=== PATIENT | female | born 2000 | race Two or more races ===

== ENCOUNTER 2023-04-21 22:08 | Outpatient (CLI) | payer OTHER ==
[~2023-04-21] VITALS: Ht 154.9 cm; Wt 59.4 kg
[2023-04-21] MEDS ORDERED: PRENATAL TABLE1 EAC4 PO (22:26)
== END 2023-04-22 10:35 | disposition home or self-care (01) ==
LOC: OBS/DEL 22:08
PROVIDERS: ATTEND Obstetrics & Gynecology
DX: O26.892 Other specified pregnancy related conditions, second trimester (principal); R42 Dizziness and giddiness; Z3A.26 26 weeks gestation of pregnancy

== ENCOUNTER 2023-07-08 15:15 | Inpatient (IN) | payer OTHER ==
[~2023-07-08] VITALS: Ht 154.9 cm; Wt 66.7 kg
[~2023-07-08 15:15] MED LIST: PRENATAL TABLE1 EAC4 PO
[2023-07-12] MEDS ORDERED: IRON325 MG PO (22:19)
[2023-07-20] MEDS ORDERED: AMPICILLIN SODIUM 2,000 MG VIAL ONE (05:42)
[2023-07-20] MEDS ORDERED: OXYTOCIN 500 ML IV ONE (05:45)
[2023-07-20] MEDS ORDERED: RINGERS SOLUTION,LACTATED 1,000 ML IV SCH (07:00)
[2023-07-20] MEDS ORDERED: AMPICILLIN SODIUM 2,000 MG VIAL IV ONE (07:00)
[2023-07-20 07:26] LABS: HEMATOCRIT 30.6 % (36.0-45.00); HEMOGLOBIN 9.5 g/dL (12.0-15.00); MEAN CORPUSCULAR HEMOGLOBIN 20.8 pg (27.00-32.0); MEAN CORPUSCULAR HGB CONC 31.2 g/dl (32.0-36.0); RED BLOOD COUNT 4.59 M/uL (4.00-6.00); RED CELL DISTRIBUTION WIDTH 20.3 % (11.5-14.5)
[2023-07-20 07:42] LABS: ALBUMIN 2.8 gm/dL (3.4-5.0); BILIRUBIN TOTAL 0.45 mg/dL (0.3-1.2); CALCIUM 8.8 mg/dL (8.5-10.1); CREATININE SERUM 0.52 mg/dL (0.55-1.02); GFR 147.46; GLOBULINA 3.8 G/DL (2.4-3.5); POTASSIUM 3.91 mEq/L (3.5-5.1); TOTAL PROTEIN 6.6 gm/dL (6.4-8.2)
[2023-07-20 07:55] LABS: INR < 0.93; PROTHROMBIN TIME 9.8 SECONDS (9.0-11.5)
[2023-07-20 08:15] LABS: MEAN CELL VOLUME 66.6 fL (80.00-100.00); PLATELET COUNT 109 K/uL (150-450)
[2023-07-20] MEDS ORDERED: AMPICILLIN SODIUM 1,000 MG VIAL IV SCH (09:00)
[2023-07-20] MEDS ORDERED: MORPHINE SULFATE 4 MG/ML VIAL IV ONE (09:15)
[2023-07-20] MEDS ORDERED: CHLORHEXIDINE GLUCONATE 120 ML BOTTLE TOP ONE (14:21)
[2023-07-20] MEDS ORDERED: MORPHINE SULFATE 4 MG/ML CARTRIDGE IV STA (15:47)
[2023-07-20] MEDS ORDERED: ERYTHROMYCIN BASE 1 GM TUBE OP SCH (17:15)
[2023-07-20] MEDS ORDERED: CHLORHEXIDINE GLUCONATE 120 ML BOTTLE TOP SCH (17:15)
[2023-07-20] MEDS ORDERED: IBUprofen 400 MG TABLET PO PRN (17:15)
[2023-07-20] MEDS ORDERED: OXYTOCIN 1,000 ML IV SCH (17:15)
[2023-07-20] MEDS ORDERED: LIDOCAINE HCL 1% 200MG/20ML VIAL IJ SCH (17:15)
[2023-07-21 07:22] LABS: MEAN CORPUSCULAR HGB CONC 31.5 g/dl (32.0-36.0); PLATELET COUNT 133 K/uL (150-450); RED BLOOD COUNT 3.43 M/uL (4.00-6.00); RED CELL DISTRIBUTION WIDTH 20.4 % (11.5-14.5)
[2023-07-21 07:40] LABS: HEMATOCRIT 22.9 % (36.0-45.00); HEMOGLOBIN 7.2 g/dL (12.0-15.00); MEAN CORPUSCULAR HEMOGLOBIN 20.9 pg (27.00-32.0)
[2023-07-21 07:41] LABS: MEAN CELL VOLUME 66.7 fL (80.00-100.00)
[2023-07-21] MEDS ORDERED: IRON FUM,PS/FOLIC/BCOMP,C NO.9 1 CAP CAPSULE PO SCH (09:00)
== END 2023-07-22 17:16 | disposition home or self-care (01) | DRG 807 ==
LOC: OB/GYN 07-20 05:26 → LDR 07-20 05:26 → OB/GYN 07-20 17:19
PROVIDERS: Obstetrics & Gynecology; ADMIT Obstetrics & Gynecology Maternal & Fetal Medicine; ATTEND Obstetrics & Gynecology Maternal & Fetal Medicine
PROC: 10E0XZZ Delivery of Products of Conception, External Approach (ICD-10-PCS; principal; 2023-07-20)
PROC: 0KQM0ZZ Repair Perineum Muscle, Open Approach (ICD-10-PCS; 2023-07-20)
PROC: 0UQMXZZ Repair Vulva, External Approach (ICD-10-PCS; 2023-07-20)
PROC: 4A1HXCZ Monitoring of Products of Conception, Cardiac Rate, External Approach (ICD-10-PCS; 2023-07-20)
DX: O70.1 Second degree perineal laceration during delivery (principal); O71.82 Other specified trauma to perineum and vulva; O99.824 Streptococcus B carrier state complicating childbirth; Z37.0 Single live birth; Z3A.39 39 weeks gestation of pregnancy; Z20.822 Contact with and (suspected) exposure to COVID-19

== ENCOUNTER 2023-07-12 22:16 | Outpatient (CLI) | payer OTHER ==
[~2023-07-12] VITALS: Ht 154.9 cm; Wt 66.7 kg
[2023-07-12] MEDS ORDERED: IRON325 MG PO (22:19)
== END 2023-07-13 10:36 | disposition home or self-care (01) ==
LOC: OBS/DEL 22:16
PROVIDERS: ATTEND Obstetrics & Gynecology
DX: O26.93 Pregnancy related conditions, unspecified, third trimester (principal); Z3A.38 38 weeks gestation of pregnancy